=== PATIENT | female | born 1980 | race Two or more races ===

== ENCOUNTER 2022-02-09 06:05 | Day surgery (SDC) | payer OTHER ==
[~2022-02-09] VITALS: Ht 165.1 cm; Wt 60.3 kg
[2022-02-09] MEDS ORDERED: CIPROFLOXACIN 400MG/200ML 200 ML IV ONE (07:40)
[2022-02-09] MEDS ORDERED: MEPERIDINE HCL (25 MG/ML) 1ML VIAL ONE (08:28)
[2022-02-09] MEDS ORDERED: fentaNYL CITRATE 100 MCG/2 ML VL ONE (08:28)
[2022-02-09] MEDS ORDERED: MIDAZOLAM HCL 2MG/2ML 2ml VIAL (1mg/ml) ONE (08:29)
[2022-02-09] MEDS ORDERED: MORPHINE SULFATE 4 MG/ML SYR/VIAL IV PRN (08:30)
[2022-02-09] MEDS ORDERED: ACCU-CHEK COMFORT CURVE STRIP VI ONE (08:30)
[2022-02-09] MEDS ORDERED: LABETALOL HCL 5 MG/ML 4ML SYRINGE IV PRN (08:30)
[2022-02-09] MEDS ORDERED: ONDANSETRON HCL 4 MG/2 ML VIAL IV PRN (08:30)
[2022-02-09] MEDS ORDERED: MIDAZOLAM HCL 2MG/2ML 2ml VIAL (1mg/ml) IV PRN (08:30)
[2022-02-09] MEDS ORDERED: HYDROmorphone HCL 2 MG/ML VL/or syr IV PRN (08:30)
[2022-02-09] MEDS ORDERED: ePHEDrine SULFATE 50 MG/ML AMP IV PRN (08:30)
[2022-02-09] MEDS ORDERED: LIDOCAINE 1%-Mpf/Epinephrine 1:200,000 ONE (08:34)
[2022-02-09] MEDS ORDERED: DexAMETHasone SOD PHOS 10MG/1ML VIAL INJ ONE (08:51)
[2022-02-09] MEDS ORDERED: PROPOFOL 10 MG/ML 20 ML IV ONE (09:28)
[2022-02-09 10:00] VITALS: BP 135/71
== END 2022-02-09 10:10 | disposition home or self-care (01) ==
LOC: SUR 06:05
PROVIDERS: ATTEND Urology
DX: N36.2 Urethral caruncle (principal); R30.0 Dysuria; C68.0 Malignant neoplasm of urethra; F41.9 Anxiety disorder, unspecified; M19.90 Unspecified osteoarthritis, unspecified site; G40.909 Epilepsy, unspecified, not intractable, without status epilepticus; Z98.890 Other specified postprocedural states; Z79.899 Other long term (current) drug therapy; Z88.0 Allergy status to penicillin; Z20.822 Contact with and (suspected) exposure to COVID-19
CPT/HCPCS: 53260; 81025; 88305; J0744; J1100; J2001; J2175; J2250; J2704; J3010